=== PATIENT | female | born 1985 | race Caucasian/White ===

== ENCOUNTER 2024-03-07 23:13 | Emergency (ER) | payer OTHER, SELFPAY ==
[2024-03-07 23:15] VITALS: BP 130/88
--- NOTE | 2024-03-08 00:21 | ED.GENMED ---
History of Present Illness
General
Chief Complaint: Dental Problem
Source: patient
Exam Limitations: none
Time Seen by Provider: 03/08/24 00:13
Nursing documentation reviewed up to this point in time: agreed with
History of Present Illness
History of Present Illness:
38-year-old female right upper toothache onset a day or so ago history of the same in the lower requiring loose tooth removal does have a filling on the upper does have an oral surgeon and her regular dentist, no fevers, no relief with meds at home
Past History
Past History
ED Past Medical History: Other (Migraine headaches, UTI, Kidney stones); Negative Asthma, HTN, Hypercholesterolemia or NIDDM
ED Past Surgical History: Gynecological (Embryo transfer)
Social History
Tobacco: Former smoker
Alcohol: Occasional
Drug: None
Personal:
Living: with family
Employment: Employed
Family History
Family History: Other (CVA in a 91-year-old grandmother )
Review of Systems
Review of Systems
All Other Systems: Not applicable
Constitutional: Denies fever or fatigue
EENT: Reports other (Dental pain mild right facial)
Phy Exam
Physical Exam
Physical Exam:
Physical Exam
General: no apparent distress, not acutely ill
Neck: Minimal tenderness to tap in the right upper molar, no trismus, no palpable abscess mild right facial swelling
Heart: s1/s2 regular rate and rhythm, no murmur. equal radial pulses.
Lungs: no acute respiratory distress. clear bilaterally
Neuro: alert and oriented. no focal neurological deficits
Skin: no rash
Psychiatric: well kept. interactive and cooperative
Extremities: no edema. no calf tenderness. negative homans. good distal pulses
Course
Orders/Labs/Results
Orders:
Orders
03/08/24 00:20
Oxycodone/Acetaminophen [Percocet 5/325] 1 tablet PO NOW STA
Penicillin V Potassium [Pen Vk] 250 mg PO NOW STA
Vital Signs
Initial and Last Documented VS:
Initial Vital Signs
Temp Pulse Resp BP Pulse Ox
98.2 F 82 18 130/88 100
03/07/24 23:15 03/07/24 23:15 03/07/24 23:15 03/07/24 23:15 03/07/24 23:15
Last Documented Vital Signs
Temp Pulse Resp BP Pulse Ox
98.2 F 82 18 130/88 100
03/07/24 23:15 03/07/24 23:15 03/07/24 23:15 03/07/24 23:15 03/07/24 23:15
Procedures
Dentalgia
Dental Block: Nerve Block
Abcess drained?: No
Pt tolerated procedure well w/ no immediate adverse effects?: Yes
MDM/Problems Addressed
Differential Diagnosis Includes:
Dental carry dental infection abscess
MDM/Problems Addressed:
tooth ache
*Critical Care Note
Total Time (30-74mins, 75-104mins- exclusive of procedures): Not Applicable
Update Note
Update Note:
Patient tolerated dental block well, will start on antibiotics anti-inflammatories analgesics follow-up with her dentist or oral surgeon
ED Attending Note
-
Portions of this chart may have been created with voice recognition software.� Occasional wrong word or��sound alike� substitutions may have occurred due to the inherent limitations of voice recognition software.
Discharge Plan
Departure
Patient Disposition: Home (Routine Discharge)
Date of Disposition: 03/08/24
Time of Disposition: 00:31
Patient with high blood pressure during this ER visit?: No
Condition: Good
Covid-19: Not Applicable
Discharge Problem:
Pain, dental
Instructions: Dental Pain (DC)
Prescriptions:
No Action
ibuprofen 800 MG tablet
800 mg PO Q6HPRN PRN (Reason: pain)
frovatriptan 2.5 MG tablet
2.5 - 5 mg PO PRN PRN (Reason: migraine)
tamsulosin 0.4 MG capsule
0.4 mg PO DAILY Qty: 7 0RF
ondansetron 4 MG tablet,disintegrating
4 mg PO TIDPRN PRN (Reason: nausea/vomiting) Qty: 12 0RF
ketorolac 10 MG tablet
10 mg PO Q6HPRN PRN (Reason: pain) Qty: 20 0RF
diphenhydramine HCl [Banophen] 25 MG capsule
25 mg PO HSPRN PRN (Reason: sleep)
oxybutynin chloride 5 MG tablet
5 mg PO BID Qty: 20 0RF
oxycodone-acetaminophen 1 EACH tablet
1 ea PO Q6 PRN (Reason: pain ) Qty: 20 0RF
oxycodone 5 mg tablet
5 mg PO Q8H PRN (Reason: pain) Qty: 10 0RF
Referrals:
Maldonado Laureano MD [Family Provider] -
Interventions
Interventions:
*Risk Screen - Suicide Last Done: 03/07/24 23:15
*Neglect/Abuse Screening Last Done: 03/07/24 23:15
Discharge Date and Time
Print Language: CZECH
[2024-03-08] MEDS: PERCOCET 5/325 1 TABLET PO (00:49)
[2024-03-08] MEDS: PEN VK 250 MG PO (00:49)
== END 2024-03-08 01:30 | disposition home or self-care (01) ==
LOC: EMR 23:13
PROVIDERS: EMERGENCY PHYSICIAN Emergency Medicine; FAMILY PHYSICIAN Family Medicine
DX: K08.89 Other specified disorders of teeth and supporting structures (principal); Z82.3 Family history of stroke; Z87.440 Personal history of urinary (tract) infections; Z87.442 Personal history of urinary calculi; Z87.891 Personal history of nicotine dependence
CPT/HCPCS: 99282; 64400

== ENCOUNTER 2024-08-17 11:21 | Emergency (ER) | payer OTHER, SELFPAY ==
[2024-08-17 11:23] VITALS: BP 127/86
--- NOTE | 2024-08-17 12:12 | EDRN ---
Pt arrives for a really bad migraine that started last night, mostly on R side of head, bilateral eye sensitive and pain, N/V that started this am, noise sensitivity, R ear pain. no dizziness. Pain is at this time described as 10/10 sharp pressure
and some achyness. Pt took advill 800 mg last night, migraine med- forvotriptin this am 5 mg total 2.5 mg one hour apart.
[2024-08-17 12:15] VITALS: BP 114/83
[2024-08-17 12:27] VITALS: BMI 35.8
--- NOTE | 2024-08-17 16:03 | ED.GENMED ---
History of Present Illness
General
Chief Complaint: Headache
Source: patient
Exam Limitations: none
Time Seen by Provider: 08/17/24 12:45
Nursing documentation reviewed up to this point in time: agreed with
History of Present Illness
History of Present Illness:
38 yo Female with hx migraines presents with headache since 10 p.m. last night. Consistent with her chronic migraines, light sensitive, pain behind eyes and �mostly on the right which is how it usually is� �but unable to relieve it with Advil or
Frovatriptan as usual.
Denies recent trauma, denies n/v.
Past History
Past History
ED Past Medical History: Other (Migraine headaches, UTI, Kidney stones); Negative Asthma, HTN, Hypercholesterolemia or NIDDM
ED Past Surgical History: Gynecological (Embryo transfer)
Social History
Tobacco: Former smoker
Alcohol: Occasional
Drug: None
Personal:
Living: with family
Employment: Employed
Family History
Family History: Other (CVA in a 91-year-old grandmother )
Review of Systems
Review of Systems
Allergies reviewed?: Yes
All Other Systems: ROS reviewed and negative except as documented in HPI and ROS
Constitutional: Denies fever
ABD/GI: Denies nausea or vomiting
Neurological: Reports headache; Denies dizzy, weakness or numbness
Phy Exam
Physical Exam
Physical Exam:
GENERAL: No acute distress. A&Ox3.
CONSTITUTIONAL: Afebrile.
EYES: clear, conjunctivae normal, PERRL
ENMT: moist mucus membranes, Pharynx nl
RESPIRATORY: Regular respirations, nonlabored, lungs clear.
CARDIOVASCULAR: Regular rate and rhythm, no murmurs, no rubs.
GI: Soft, nontender, normal BS
MUSCULOSKELETAL: Moves with ease. Well perfused.
SKIN: Warm, dry, pink
PSYCH: Normal mood and affect. Well kept, interactive and appropriate
NEUROLOGIC: Awake, alert and oriented. Speech clear. Cranial nerves II through XII intact. Finger-nose intact. No focal neurological deficits
Course
Orders/Labs/Results
Orders:
Orders
08/17/24 13:03
0.9% Sodium Chloride 1000 ml [Nss] 1,000 ml IV BOLUS
Diphenhydramine [Benadryl] 50 mg IV NOW STA
Prochlorperazine [Compazine] 10 mg IV NOW STA
08/17/24 13:05
Ketorolac [Toradol] 15 mg IV NOW STA
08/17/24 13:14
Ketorolac [Toradol] 15 mg .ROUTE .STK-MED ONE
Vital Signs
Initial and Last Documented VS:
Initial Vital Signs
Temp Pulse Resp BP Pulse Ox
97.4 F 66 16 127/86 96
08/17/24 11:23 08/17/24 11:23 08/17/24 11:23 08/17/24 11:23 08/17/24 11:23
Last Documented Vital Signs
Temp Pulse Resp BP Pulse Ox
97.4 F 61 16 98/68 99
08/17/24 11:23 08/17/24 16:20 08/17/24 12:15 08/17/24 16:20 08/17/24 16:20
MDM/Problems Addressed
Differential Diagnosis Includes:
migraine
MDM/Problems Addressed:
38 yo Female with hx migraines presents with headache since 10 p.m. last night. Consistent with her chronic migraines, light sensitive, pain behind eyes and �mostly on the right which is how it usually is� �but unable to relieve it with Advil or
Frovatriptan as usual.
Denies recent trauma, denies n/v.
4:00 p.m.
After IVF's and meds. Feeling much better, wants to go home.
OOB and ambulating well.
*Critical Care Note
Total Time (30-74mins, 75-104mins- exclusive of procedures): Not Applicable
ED Attending Note
-
Portions of this chart may have been created with voice recognition software.� Occasional wrong word or��sound alike� substitutions may have occurred due to the inherent limitations of voice recognition software.
Discharge Plan
Departure
Patient Disposition: Home (Routine Discharge)
Date of Disposition: 08/17/24
Time of Disposition: 16:05
Patient with high blood pressure during this ER visit?: No
Condition: Good
Discharge Problem:
Migraine
Instructions: Migraines (DC)
Prescriptions:
No Action
ibuprofen 800 MG tablet
800 mg PO Q6HPRN PRN (Reason: pain)
frovatriptan 2.5 MG tablet
2.5 - 5 mg PO PRN PRN (Reason: migraine)
tamsulosin 0.4 MG capsule
0.4 mg PO DAILY Qty: 7 0RF
ondansetron 4 MG tablet,disintegrating
4 mg PO TIDPRN PRN (Reason: nausea/vomiting) Qty: 12 0RF
ketorolac 10 MG tablet
10 mg PO Q6HPRN PRN (Reason: pain) Qty: 20 0RF
diphenhydramine HCl [Banophen] 25 MG capsule
25 mg PO HSPRN PRN (Reason: sleep)
oxybutynin chloride 5 MG tablet
5 mg PO BID Qty: 20 0RF
oxycodone-acetaminophen 1 EACH tablet
1 ea PO Q6 PRN (Reason: pain ) Qty: 20 0RF
oxycodone 5 mg tablet
5 mg PO Q8H PRN (Reason: pain) Qty: 10 0RF
oxycodone-acetaminophen [Percocet] 5-325 mg tablet
1 tab PO Q6HPRN PRN (Reason: pain) Qty: 10 0RF
ibuprofen 600 mg tablet
600 mg PO Q8H PRN (Reason: Pain) Qty: 20 0RF
penicillin V potassium 250 mg tablet
500 mg PO Q8H 10 Days Qty: 60 0RF
Referrals:
Rangel Alejo MD [Family Provider, Neurology]
Activity Restrictions/Additional Instructions:
See Dr. Alejo if not much improved in the next 2 days.
Interventions
Interventions:
*Risk Screen - Suicide Last Done: 08/17/24 11:24
*General Assessment Last Done: 08/17/24 12:25
*Neglect/Abuse Screening Last Done: 08/17/24 11:24
*ED- Fall Risk Assessment Last Done: 08/17/24 12:25
*ED COVID-19 Vaccine History Last Done: 08/17/24 12:25
*Nursing Disposition Last Done: 08/17/24 16:20
ED- Neurological Assessment Last Done: 08/17/24 12:16
Discharge Date and Time
Discharge Date/Time: 08/17/24 16:25
Print Language: NIGERIEN
--- NOTE | 2024-08-17 16:19 | DOWNTIME ---
There was a [employer] Client Percussion In[employer] Downtime on 08/17/2024 from 1230 to 08/17/2024 at 1550. Downtime documentation of patient's care, including medication administrations, has been reconciled in the electronic record per guidelines. Refer to the
patient's paper chart under the miscellaneous tab to see printed paper medication records and downtime forms.
[2024-08-17 16:20] VITALS: BP 98/68
== END 2024-08-17 16:25 | disposition home or self-care (01) ==
LOC: EMR 11:21
PROVIDERS: EMERGENCY PHYSICIAN Student in an Organized Health Care Education/Training Program; FAMILY PHYSICIAN Psychiatry & Neurology Neurology
DX: G43.909 Migraine, unspecified, not intractable, without status migrainosus (principal); Z87.891 Personal history of nicotine dependence
CPT/HCPCS: 96374; 96375; 99284

== ENCOUNTER 2025-03-03 08:05 | Emergency (ER) | payer OTHER, SELFPAY ==
[2025-03-03 08:16] VITALS: BP 150/95
--- NOTE | 2025-03-03 09:54 | ED.GENMED ---
History of Present Illness
General
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
Source: patient
Exam Limitations: none
Time Seen by Provider: 03/03/25 09:14
Nursing documentation reviewed up to this point in time: agreed with
History of Present Illness
History of Present Illness:
Patient is a 39-year-old female who presents for discomfort possible abscess to right perennial region. Symptoms started 4 days ago. She has been using compresses without relief. She denies any associated fever or chills.
Past History
Past History
ED Past Medical History: Other (Migraine headaches, UTI, Kidney stones); Negative Asthma, HTN, Hypercholesterolemia or NIDDM
ED Past Surgical History: Gynecological (Embryo transfer)
Social History
Tobacco: Former smoker
Alcohol: Occasional
Drug: None
Personal:
Living: with family
Employment: Employed
Family History
Family History: Other (CVA in a 91-year-old grandmother )
Phy Exam
General Physical Exam
General Presentation: no apparent distress
General age: appears stated age
General Skin: warm and dry
General Habitus: normal
General Mental: alert
General Hydration: appears well hydrated
Genitourinary Exam Female
Exam Female: other (+ abscess in hairline of right perineum region no involvement of labia or rectal region )
Neurological Exam
Neurological Exam: alert and oriented x3
Musculoskeletal Exam
Musculoskeletal Exam: full ROM
Skin Exam
Skin Exam: normal color and warm/dry
Course
Orders/Labs/Results
Orders:
Orders
03/03/25 09:52
Ibuprofen [Motrin] 600 mg PO NOW STA
03/03/25 09:54
Wound Culture [Wound/Abscess/Other Culture] Urgent
NELLA Source: Abscess
Specimen Description:
Date Specimen was Collected: 03/03/25
Time Specimen was Collected: 09:59
Sulfamethox./Trimethoprim Ds [Bactrim Ds 800 mg/160 mg] 1 tablet PO NOW STA
Vital Signs
Initial and Last Documented VS:
Initial Vital Signs
Temp Pulse Resp BP Pulse Ox
98.1 F 95 16 150/95 97
03/03/25 08:16 03/03/25 08:16 03/03/25 08:16 03/03/25 08:16 03/03/25 08:16
Last Documented Vital Signs
Temp Pulse Resp BP Pulse Ox
98.1 F 95 16 150/95 97
03/03/25 08:16 03/03/25 08:16 03/03/25 08:16 03/03/25 08:16 03/03/25 09:54
Procedures
Incision/Drainage/Joint Aspiration
right perineum/hairline:
Anethesia: 1% Lidocaine with Epi
Preparation: cleaned with Betadine
Type of procedure: incise
Nature of site: abscess
Description of abscess: greater than 3cm
Loculations broken up: Yes
How much fluid was obtained?: large amount
Fluid description: purulent
Treatment: packed with gauze
MDM/Problems Addressed
Differential Diagnosis Includes:
Not limited to abscess
MDM/Problems Addressed:
Patient presented with an abscess in the right perineum hairline area not involving the labia or rectal region. Abscess was anesthetized and incision and drainage performed with large amount of purulent drainage. This was packed. Will DC with
antibiotics along with warm compresses. Discussed close outpatient follow-up for recheck. Discussed return precautions.
*Pulse Oximetry
SaO2: 97
Oxygen Mode of Delivery: Room air
Patient hypoxic: no
*Critical Care Note
Total Time (30-74mins, 75-104mins- exclusive of procedures): Not Applicable
ED Attending Note
-
Portions of this chart may have been created with voice recognition software.� Occasional wrong word or��sound alike� substitutions may have occurred due to the inherent limitations of voice recognition software.
Discharge Plan
Departure
Patient Disposition: Home (Routine Discharge)
Date of Disposition: 03/03/25
Time of Disposition: 10:02
Patient with high blood pressure during this ER visit?: Yes
Condition: Fair
Covid-19: Not Applicable
Discharge Problem:
Abscess
Instructions: Abscess incision and drainage - ED (DC)
Prescriptions:
New
sulfamethoxazole-trimethoprim [Bactrim] 400-80 mg tablet
1 tab PO BID Qty: 14 0RF
No Action
ibuprofen 800 MG tablet
800 mg PO Q6HPRN PRN (Reason: pain)
frovatriptan 2.5 MG tablet
2.5 - 5 mg PO PRN PRN (Reason: migraine)
tamsulosin 0.4 MG capsule
0.4 mg PO DAILY Qty: 7 0RF
ondansetron 4 MG tablet,disintegrating
4 mg PO TIDPRN PRN (Reason: nausea/vomiting) Qty: 12 0RF
ketorolac 10 MG tablet
10 mg PO Q6HPRN PRN (Reason: pain) Qty: 20 0RF
diphenhydramine HCl [Banophen] 25 MG capsule
25 mg PO HSPRN PRN (Reason: sleep)
oxybutynin chloride 5 MG tablet
5 mg PO BID Qty: 20 0RF
oxycodone-acetaminophen 1 EACH tablet
1 ea PO Q6 PRN (Reason: pain ) Qty: 20 0RF
oxycodone 5 mg tablet
5 mg PO Q8H PRN (Reason: pain) Qty: 10 0RF
oxycodone-acetaminophen [Percocet] 5-325 mg tablet
1 tab PO Q6HPRN PRN (Reason: pain) Qty: 10 0RF
ibuprofen 600 mg tablet
600 mg PO Q8H PRN (Reason: Pain) Qty: 20 0RF
penicillin V potassium 250 mg tablet
500 mg PO Q8H 10 Days Qty: 60 0RF
Referrals:
[facility] [Outside]
NONE,* [Family Provider, Internal Medicine]
Activity Restrictions/Additional Instructions:
Leave packing in place. Hot soaks warm compresses to area several times a day. Antibiotics as directed twice daily for the next 7 days. This medication was sent to your pharmacy. Follow-up at [facility] in the next 2 - 3 days for
wound check packing removal. If packing falls off on its own before then that is okay. Return if any worsening of symptoms or increased pain swelling redness fever chills.
Interventions
Interventions:
*Risk Screen - Suicide Last Done: 03/03/25 08:16
*General Assessment Last Done: 03/03/25 08:16
*Neglect/Abuse Screening Last Done: 03/03/25 08:16
Discharge Date and Time
Print Language: ARABIC
[2025-03-03] MEDS: MOTRIN 600 MG PO (10:02)
[2025-03-03] MEDS: BACTRIM DS 800 MG/160 MG 1 TABLET PO (10:02)
[2025-03-03 10:22] VITALS: BP 128/97
== END 2025-03-03 10:26 | disposition home or self-care (01) ==
LOC: EMR 08:05
PROVIDERS: EMERGENCY PHYSICIAN Emergency Medicine
DX: L02.215 Cutaneous abscess of perineum (principal); Z82.3 Family history of stroke; Z87.440 Personal history of urinary (tract) infections; Z87.442 Personal history of urinary calculi; Z87.891 Personal history of nicotine dependence
CPT/HCPCS: 99282; 10060; 87070; 87205